=== PATIENT | female | born 1980 | race Caucasian/White ===

== ENCOUNTER 2017-03-31 11:15 | Emergency (ER) | payer MEDICARE, OTHER ==
[~2017-03-31 11:15] MED LIST: CELEXA PO; CIPRO250 MG PO; FLEXERIL10 MG PO; NO MEDICATIONS; TYLENOL #3 PO
[2017-03-31 13:51] LABS: URINE SOURCE CLEAN CATCH
[2017-03-31 14:03] LABS: URINE APPEARANCE CLOUDY; URINE BILIRUBIN NEG (NEG); URINE BLOOD NEG (NEG); URINE COLOR YELLOW; URINE GLUCOSE NEG (NEG); URINE KETONE NEG (NEG); URINE LEUKOCYTE ESTERASE 2+ (NEG); URINE NITRATE NEG (NEG); URINE PROTEIN NEG (NEG); URINE SPECIFIC GRAVITY 1.023 (1.003-1.035); URINE UROBILINOGEN 0.2 MG/DL (NEG)
[2017-03-31 14:05] LABS: URINE BACTERIA AUWI 2+ (NEGATIVE); URINE SQUAMOUS EPITHELIAL CELL MOD /[HPF]; UWBCS1 AUWI 25-50 (0-5)
[2017-03-31 14:16] LABS: CULTURE INDICATED? YES
[2017-04-03 22:29] LABS: CHLAMYDIA TRACH Not Detected (Not Detected); N GONOR Detected (Not Detected)
== END 2017-03-31 15:02 | disposition home or self-care (01) ==
LOC: CED 11:15 → CFTX 11:15 → CED 13:54 → CFTX 15:02
PROVIDERS: Nurse Practitioner Family
DX: N76.0 Acute vaginitis (principal); N30.00 Acute cystitis without hematuria; F17.210 Nicotine dependence, cigarettes, uncomplicated; Z88.8 Allergy status to other drugs, medicaments and biological substances
CPT/HCPCS: 81003; 84703; 87086; 87088; 87186; 87491; 87591; 87808; 87905; 96372; 99284; J0696

== ENCOUNTER 2017-06-03 00:31 | Emergency (ER) | payer MEDICARE, OTHER | END 2017-06-03 02:10 | disposition left against medical advice (07) | LOC: CED 00:31 | DX: Z53.21 Procedure and treatment not carried out due to patient leaving prior to being seen by health care provider (principal) ==